=== PATIENT | male | born 1955 | race Caucasian/White ===

== ENCOUNTER 2024-04-19 05:25 | Observation (INO) | payer MEDICARE, SELFPAY ==
[2024-04-18 23:57] VITALS: BP 191/106
[2024-04-19] VITALS (14 sets, daily range): BP systolic 127–162; BP diastolic 80–105; PULSE 75–90; O2SAT 96; BMI 24.4; BMI 24.0
[2024-04-19 00:52] LABS: % Basophils 0.6 % (0-2); % Eosinophils 1.9 % (0-6); % Immature Granulocytes 0.1 % (0-0.5); % Monocytes 9.1 % (1.7-9.3); % Neutrophils 64.3 % (42.2-75.2); Absolute Basophils 0.1 10^3/uL (0-0.2); Absolute Eosinophils 0.2 10^3/uL (0-0.7); Absolute Lymphocytes 1.9 10^3/uL (1.2-3.4); Absolute Monocytes 0.7 10^3/uL (0.1-0.6); Hemoglobin 15.5 g/dL (13.0-18.0); Mean Corpuscular Hgb 30.7 pg (27.0-31.0); Mean Corpuscular Volume 85.1 fL (80.0-94.0); Mean Platelet Volume 9.4 fL (7.4-10.4); Nucleated Red Blood Cells % 0 % (-); Platelet Count 187 10^3/uL (130-400); Red Blood Cell Count 5.05 10^6/uL (4.70-6.10); Red Cell Dist. Width 12.1 % (11.5-14.5); White Blood Cell Count 7.8 10^3/uL (4.8-10.8)
--- NOTE | 2024-04-19 01:02 | ED.GENMED ---
History of Present Illness
General
Chief Complaint: Blood Pressure Problem
Source: patient
Exam Limitations: none
Time Seen by Provider: 04/19/24 00:24
Nursing documentation reviewed up to this point in time: agreed with
History of Present Illness
History of Present Illness:
Pleasant 69-year-old male that presents with dizziness. He states that he drove back from [place] and had several episodes of dizziness while driving. He states that he has a fullness in the back of the head which he is experienced in the past
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 Denies any other neurological issues. Patient does have a history of hypertension, and states that he has been very compliant with his medication. Patient states that he had an embolism from a AAA. He
is not on any blood thinners. He had an aortic dissection repair in the past.
Past History
Past History
ED Past Medical History: HTN and Other (Kidney stones, aortic dissection)
ED Past Surgical History: Urological and Other (Aortic dissection repair, ureteral stent)
Social History
Tobacco: Non-smoker
Alcohol: None
Drug: None
Phy Exam
General Physical Exam
General Presentation: well appearing and no apparent distress
General Skin: warm and dry
General Habitus: normal
General Mental: alert
General Hydration: appears well hydrated
ENT Exam
ENT Exam: EOMI, pharynx normal, neck supple and normocephalic
Eye Exam
Eye Exam: PERRL, cornea clear and conjunctiva normal
Cardiovascular Exam
Cardiovascular Exam: regular rate/rhythm, no edema, no murmur and normal peripheral pulses
Pulmonary Exam
Pulmonary Exam: lungs clear, no respiratory distress, no rales, no crackles, no rhonchi, no stridor, no wheezing and no cough
Gastrointestinal Exam
Gastrointestinal Exam: normal bowel sounds, non tender, soft, no organomegaly, no pulsatile mass and non distended
Neurological Exam
Neurological Exam: alert, oriented x3, no motor deficits and speech normal
Musculoskeletal Exam
Musculoskeletal Exam: full ROM and no edema
Skin Exam
Skin Exam: normal color, warm/dry, no rash and no petechia
Psychiatric Exam
Psychiatric Exam: normal mood/affect
Course
Orders/Labs/Results
Orders:
Orders
04/19/24 00:24
Electrocardiogram (*1) Stat
Reason for Study: Other
Other Reason for Exam: chest pain
Cardiac Monitoring- Treatment ONCE
EKG- Treatment ONCE
04/19/24 00:44
Complete Blood Count/With Diff Urgent
Comprehensive Metabolic Panel Urgent
PTT Urgent
Prothrombin Time Urgent
TSH Urgent
Troponin I Urgent
04/19/24 00:57
CT Head & Neck Angio W/wo IV Urgent
Comment:
Reason For Exam: head pain similar to previous thrombotc cva
04/19/24 00:58
US Abdomen Complete/Upper Urgent
Comment:
Reason For Exam: known AAA
04/19/24 03:32
Aspirin 325 mg PO NOW STA
Clopidogrel Bisulfate [Plavix] 150 mg PO NOW STA
Abnormal Lab Results
04/19/24
00:44
Absolute Monos (auto) 0.7 H 10^3/uL
(0.1-0.6)
Glucose 106 H mg/dl
(70-99)
Alkaline Phosphatase 37 L U/L
(38-126)
04/19/24 00:44
04/19/24 00:44
Vital Signs
Initial and Last Documented VS:
Initial Vital Signs
Temp Pulse Resp BP Pulse Ox
98 F 88 18 191/106 95
04/18/24 23:57 04/18/24 23:57 04/18/24 23:57 04/18/24 23:57 04/18/24 23:57
Last Documented Vital Signs
Temp Pulse Resp BP Pulse Ox
98 F 86 16 147/94 96
04/18/24 23:57 04/19/24 02:35 04/19/24 02:35 04/19/24 02:35 04/19/24 02:35
*Radiology
Radiology exam reviewed: radiology read reviewed
*Pulse Oximetry
Patient hypoxic: no
*Dust Collector Attendant Interpretation
Rate: normal
*Critical Care Note
Total Time (30-74mins, 75-104mins- exclusive of procedures): Not Applicable
Patient Management
Social determinants of health affecting care: Strong social support
Discussion with other providers: Hospitalist and Hand Welt Butter (neurology)
Update Note
Update Note:
CT head without contrast
CTA head and neck with IV contrast
IMPRESSION:
Non-contrast Head:
No acute intracranial abnormality. No acute territorial infarct, hemorrhage, mass effect, or midline shift. Mild microangiopathy.
CTA Neck:
The bilateral vertebral arteries are widely patent. Bilateral common carotid and internal carotid arteries are widely patent without significant stenosis.
CTA Head:
Moderate multifocal narrowing of an anterior M3 branch of the left MCA.
The [place] is otherwise patent without aneurysm, severe stenosis, or occlusion.
I spoke with Tonny Herron, neurology who after review of the CT angiogram recommended patient be admitted to the hospitalist service for further evaluation. Patient is in agreement. He will receive 300 of aspirin and 150 mg of Plavix.
ED Attending Note
-
Portions of this chart may have been created with voice recognition software.� Occasional wrong word or��sound alike� substitutions may have occurred due to the inherent limitations of voice recognition software.
Discharge Plan
Departure
Patient Disposition: Admit
Date of Disposition: 04/19/24
Time of Disposition: 03:55
Admit to: Telemetry
Presentation/result/management discussed w/ accepting MD/DO: Hospitalist
Condition: Good
Discharge Problem:
Dizziness, Hypertension
Prescriptions:
No Action
levofloxacin 500 MG tablet
500 mg PO DAILY Qty: 7 0RF
Referrals:
Carrie Gomez DO [Family Provider] -
Interventions
Interventions:
*Risk Screen - Suicide Last Done: 04/19/24 00:02
*General Assessment Last Done: 04/19/24 00:02
*Neglect/Abuse Screening Last Done: 04/19/24 00:02
ED- Fall Risk Assessment Last Done: 04/19/24 01:19
*ED COVID-19 Vaccine History Last Done: 04/19/24 00:02
ED- Cardiac Assessment Last Done: 04/19/24 01:17
ED- Neurological Assessment Last Done: 04/19/24 01:20
ED- Pulmonary Assessment Last Done: 04/19/24 01:41
Discharge Date and Time
Print Language: LITHUANIAN
[2024-04-19 01:05] LABS: INR 1.14; PT 14.6 Sec (11.4-14.6)
[2024-04-19 01:06] LABS: ALT (SGPT) 28 U/L (0-50); AST (SGOT) 30 U/L (17-59); Albumin 4.5 g/dl (3.5-5.0); Alkaline Phosphatase 37 U/L (38-126); Blood Urea Nitrogen 20 mg/dl (9-20); Calcium 9.7 mg/dl (8.4-10.2); Carbon Dioxide 26 mmol/L (22-30); Chloride 103 mmol/L (98-107); Glucose 106 mg/dl (70-99); Potassium 3.6 mmol/L (3.5-5.1); Sodium 139 mmol/L (135-145); Total Bilirubin 0.7 mg/dl (0.2-1.3); Total Protein 7.1 g/dl (6.3-8.2); eGFR > 60.00
[2024-04-19 01:18] LABS: Troponin I < 0.012 ng/ml
[2024-04-19 01:36] LABS: TSH 2.46 uIU/ml (0.47-4.68)
[2024-04-19] MEDS: PLAVIX 150 MG PO (03:44)
[2024-04-19] MEDS: ASPIRIN 325 MG PO (03:44)
--- NOTE | 2024-04-19 04:20 | HPS.HSE ---
Family Physician
-
Family Physician: Carrie Gomez, DO
Chief Complaint
-
Dizziness
History of Present Illness
Patient is a 69y M with PMH significant for aortic dissection, hypertension and kidney stones who presents to ED complaining of dizziness. Patient states that he has felt his balance was 'somewhat off' for the past few days. He notes that his
symptoms have mostly been mild and brief; however, while driving home from [place] over the past two days - he noted increased symptoms, especially while turning his head from [id number] at intersections, etc. He denies any numbness, tingling,
slurred speech, vision changes, N/V, falls, etc.
Patient notes that he had a mild headache posteriorly this evening on his arrival at home. He checked his BP and noted that it was quite elevated for him: 170/110. He presented to the ED for further evaluation.
On further discussion, patient notes that he has had intermittent, similar symptoms off-and-on for quite some time now.
Symptoms are usually mild and difficult to describe. He denies any overt room-spinning or ataxia.
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 He states that he has had no lasting deficit from that insult.
He is followed regularly by his physicians and notes that he had recent check-up and CT scans of the aorta repair (within the last 9 months) and all was well.
Patient denies any recent medication changes. His most recent change was a decrease in his BP medications a few months ago.
He was evaluated in [place] about 3 weeks ago for kidney stones - passed spontaneously.
Medical History
Past Medical History
Past Medical History: Reports Other
Additional Past Medical History:
Hypertension
Nephrolithiasis
Aortic Dissection
Larissa-Op CVA (9 years ago)
Past Surgical History: Reports Other
Additional Past Surgical History:
Repair of Aortic Arch Dissection (9 years ago)
Social History
Tobacco: Non-smoker
Alcohol: None
Drug: None
Family History
Family History: Not pertinent
Allergies / Home Medications
Allergies reflects when Allergies were last updated in [facility].
Home Medications with original date entered in [facility]
Allergy/Medication List:
Allergies
Allergy/AdvReac Type Severity Reaction Status Date / Time
No Known Allergies Allergy Verified 09/20/18 08:26
Home Medications
amlodipine 5 mg tablet 5 mg PO DAILY 04/19/24
aspirin 81 mg chewable tablet 81 mg PO DAILY 04/19/24
atorvastatin 10 mg tablet 10 mg PO HS 04/19/24
cholecalciferol (vitamin D3) 50 mcg (2,000 unit) tablet 50 mcg PO DAILY 04/19/24
hydrochlorothiazide 12.5 mg tablet 12.5 mg PO DAILY 04/19/24
labetalol 200 mg tablet 200 mg PO BID 04/19/24
potassium citrate 15 mEq (1,620 mg) tablet,extended release 15 meq PO BID 04/19/24
Review of Systems
-
History Source: Patient
A 12 point ROS was completed and negative except as noted: Yes
Constitutional: Denies Fever, Fatigue or Chills
EENT: Denies Sore Throat
Respiratory: Denies Cough or Trouble Breathing
Cardiac: Denies Chest Pain or Palpitations
Abdomen/GI: Denies Abdominal Pain, Nausea, Vomiting or Diarrhea
: Denies Dysuria, Frequency or Flank Pain
Musculoskeletal: Denies Joint Pain or Edema
Neurological: Reports Dizzy and Headache; Denies Weakness or Numbness
Psych: Reports Anxiety; Denies Depression
Physical Exam
Vital Signs
Vital Signs
Temp Pulse Resp BP Pulse Ox
98 F 80 17 158/105 97
04/18/24 23:57 04/19/24 04:00 04/19/24 04:00 04/19/24 04:00 04/19/24 04:00
Physical Exam
General: Other (69y M in no acute distress.)
HEENT: Moist mucous membranes and PERRLA
Respiratory: Clear; No Wheezes, Rales or Rhonchi
Cardiac: S1/S2 and Regular Rhythm; No Murmur
GI: Soft, Non Tender, Non Distended and Normal Bowel Sounds
Musculoskeletal: No Clubbing, No Cyanosis and No Edema
Neuro: AO x 3 and Nonfocal/grossly intact
Laboratory Results
-
04/19/24 00:44
04/19/24 00:44
Laboratory Results
PT 14.6 Sec (11.4-14.6) 04/19/24 00:44
INR 1.14 04/19/24:44
APTT 25.0 Sec (23.4-35.0) 04/19/24 00:44
Total Bilirubin 0.7 mg/dl (0.2-1.3) 04/19/24 00:44
AST 30 U/L (17-59) 04/19/24 00:44
ALT 28 U/L (0-50) 04/19/24 00:44
Alkaline Phosphatase 37 U/L (38-126) L 04/19/24 00:44
Troponin I < 0.012 ng/ml 04/19/24 00:44
Impression/Plan
-
A/P: Patient is a 69y M with PMH significant for aortic dissection and hypertension who presents to ED complaining of dizziness.
Dizziness
Abnormal CTA Head
- Observe overnight for further evaluation and treatment.
- Symptoms as described by patient - especially chronicity / intermittent nature - sound c/w mild BPPV versus recrudescence of prior posterior CVA.
- No other focal symptoms or exam findings at present.
- CT done in the ED is unremarkable. CTA shows moderate focal narrowing of the L M3 segment - which is not anatomically c/w dizziness / ataxia (unless via unilateral weakness).
- Will check MRI / MRA in the AM for further evaluation.
- Continue DAPT for now.
- PT / Vestibular Therapy evaluation.
- Monitor for any new / worsening symptoms overnight.
Benign Hypertension
- BP elevated from his usual baseline.
- ? secondary to acute CVA / TIA.
- Given history of aortic dissection - hesitate to be very permissive of hypertension here.
- Continue usual home medication regimen and adjust as needed.
History of Aortic Dissection
- Patient describes dissection of aortic root / arch about 9 years ago requiring open / on-pump repair.
- Evaluations since that time - most recent about 9 months ago - have been unremarkable.
- Continue anti-impulse therapy and monitor BP / pulse.
- No current / recent symptoms of chest pain, dyspnea, etc.
Nephrolithiasis
- Stable. Recent episode (3 weeks ago in [place]) with stone passing spontaneously into bladder (seen on CT at that time).
- No current flank pain, hematuria, etc.
DVT Prophylaxis: SCDs
Code Status: Full
--- NOTE | 2024-04-19 05:59 | ED.GENMED ---
History of Present Illness
General
Chief Complaint: Blood Pressure Problem
Time Seen by Provider: 04/19/24 00:24
Past History
Past History
ED Past Medical History: HTN and Other (Kidney stones, aortic dissection)
ED Past Surgical History: Urological and Other (Aortic dissection repair, ureteral stent)
Social History
Tobacco: Non-smoker
Alcohol: None
Drug: None
Course
Orders/Labs/Results
Orders:
Orders
04/19/24 00:24
Electrocardiogram (*1) Stat
Reason for Study: Other
Other Reason for Exam: chest pain
Cardiac Monitoring- Treatment ONCE
EKG- Treatment ONCE
04/19/24 00:44
Complete Blood Count/With Diff Urgent
Comprehensive Metabolic Panel Urgent
PTT Urgent
Prothrombin Time Urgent
TSH Urgent
Troponin I Urgent
04/19/24 00:57
CT Head & Neck Angio W/wo IV Urgent
Comment:
Reason For Exam: head pain similar to previous thrombotc cva
04/19/24 00:58
US Abdomen Complete/Upper Urgent
Comment:
Reason For Exam: known AAA
04/19/24 03:32
Aspirin 325 mg PO NOW STA
Clopidogrel Bisulfate [Plavix] 150 mg PO NOW STA
04/19/24 04:16
Admit/Transfer Patient As Directed
Co-Sign Provider:
Level of Care: Observation services
Assign to:: Telemetry
Physician / Group: Cornad
Diagnosis: Dizziness
Reason for Telemetry: CVA/TIA
Date to Stop Telemetry: 04/22/24
Time to Stop Telemetry: 11:00
PRN Pain Medication Management As Directed
May give lesser potent ordered pain med per pt: Yes
preference::
Protocol:: Medication orders for pain may be administered in a
manner that supports deferring to patient preference
when the pt is:
- Requesting an ordered lesser potent pain medication.
Least to most potent pain medications are defined
as: acetaminophen < NSAID < tramadol < opioids
(morphine, oxycodone, hydromorphone).
- Requesting a lesser dose of the same medication IF
ORDERED.
- Requesting a less intrusive route of administration
if both routes are prescribed by the provider (PO <
IV).
04/19/24 04:17
Code Status As Directed
Resuscitation Status: Full Code
04/19/24 05:55
Acetaminophen [Tylenol] 650 mg PO Q4HPRN PRN
HydrALAZINE [Apresoline] 5 mg IV Q6HPRN PRN
04/19/24 05:55
NEUROLOGY CONSULT Routine
Consulting Provider: Tonny Herron
Was physician already notified: Yes
Reason for consult: Dizziness
TSH Reflex To Free T4 Routine
Activity As Directed
Activity Level: Ambulate
With Assistance
EKG with chest pain [ECG as needed] As Directed
ECG as needed for:: Chest Pain
I/O [Intake/ Output] As Directed
Frequency: Per unit guidelines
Neurological Checks As Directed
Frequency: q4h
Orthostatic Vital Signs As Directed
Orthostatic VS Frequency: BID
Pneumatic Compression Sleeves As Directed
Type: Knee high
Vital Signs As Directed
Frequency: Per unit guidelines
Weight As Directed
Frequency: Daily
Oxygen Therapy [O2 Therapy] [RESP] Routine
Titrate/Wean O2 to maintain O2 sat greater than (%): 94
PT Consult [Pt Eval And Treat] Routine
Treatment: Vestibular eval
Activity Level: Ambulate
With Assistance
DX Deep Vein Thrombosis Video Routine
04/19/24 06:00
EKG [Electrocardiogram (*1)] IN AM
Reason for Study: Chest Pain
Regular
At Your Request: Full Participation
Does patient need a safe tray?: No
Basic Metabolic Panel IN AM
Cardiovascular Evaluation IN AM
Complete Blood Count/No Diff IN AM
Glycohemoglobin (HgbA1c) IN AM
[place] With MRA [MA [place] With] IN AM
Comment:
Reason For Exam: CVA / TIA
Recent pill cam endoscopy?: No
MR Brain Without Contrast IN AM
Comment:
Reason For Exam: CVA / TIA
Recent pill cam endoscopy?: No
04/19/24 08:00
Amlodipine [Norvasc] 5 mg PO DAILY
Aspirin Chewable [Low Strength Aspirin] 81 mg PO DAILY
Cholecalciferol (Vitamin D3) [VITAMIN D3 (cholecalciferol)] 50 mcg PO DAILY
Clopidogrel Bisulfate [Plavix] 75 mg PO DAILY
Hydrochlorothiazide [Oretic] 12.5 mg PO DAILY
Labetalol [Trandate] 200 mg PO BID
potassium citrate 15 meq PO BID
04/19/24 22:00
Atorvastatin [Lipitor] 10 mg PO HS
04/22/24 11:00
DC Protocol for Telemetry ONCE
Abnormal Lab Results
04/19/24
00:44
Absolute Monos (auto) 0.7 H 10^3/uL
(0.1-0.6)
Glucose 106 H mg/dl
(70-99)
Alkaline Phosphatase 37 L U/L
(38-126)
04/19/24 00:44
04/19/24 00:44
Vital Signs
Initial and Last Documented VS:
Initial Vital Signs
Temp Pulse Resp BP Pulse Ox
98 F 88 18 191/106 95
04/18/24 23:57 04/18/24 23:57 04/18/24 23:57 04/18/24 23:57 04/18/24 23:57
Last Documented Vital Signs
Temp Pulse Resp BP Pulse Ox
98 F 71 14 139/88 94
04/18/24 23:57 04/19/24 05:00 04/19/24 05:00 04/19/24 05:00 04/19/24 05:00
*EKG
Interpreted by ED Provider?: Yes
EKG Intrepretation Date: 04/19/24
Heart Rate: 76
Rhythm: sinus and PAC's
Interval: normal interval
QRS Pattern: normal QRS
Ischemia: no ischemia
*Educational/Development Assistant Interpretation
Rate: normal
Interpretation: normal
Heart Rate: 68
Rhythm: sinus
ED Attending Note
-
Portions of this chart may have been created with voice recognition software.� Occasional wrong word or��sound alike� substitutions may have occurred due to the inherent limitations of voice recognition software.
Discharge Plan
Departure
Patient Disposition: Admit
Date of Disposition: 04/19/24
Time of Disposition: 03:55
Admit to: Telemetry
Presentation/result/management discussed w/ accepting MD/DO: Hospitalist
Condition: Good
Discharge Problem:
Dizziness, Hypertension
Interventions
Interventions:
*Risk Screen - Suicide Last Done: 04/19/24 00:02
*General Assessment Last Done: 04/19/24 00:02
*Neglect/Abuse Screening Last Done: 04/19/24 00:02
ED- Fall Risk Assessment Last Done: 04/19/24 01:19
*ED COVID-19 Vaccine History Last Done: 04/19/24 00:02
ED- Cardiac Assessment Last Done: 04/19/24 01:17
ED- Neurological Assessment Last Done: 04/19/24 01:20
ED- Pulmonary Assessment Last Done: 04/19/24 01:41
--- NOTE | 2024-04-19 06:25 | PTCARENOTE ---
Patient admitted to unit via stretcher with dx of dizziness. Patient AAOx3. Pleasant and cooperative with care. NIH =0. Denies pain or discomfort. Oriented to unit. Call hicks within reach. Educated on using call hicks for all assists. Patient verbal
states understanding of using call hicks for all assists. Bed alarm applied.
[2024-04-19 08:52] LABS: Hematocrit 46.8 % (39.0-52.0); Hemoglobin 16.5 g/dL (13.0-18.0); Mean Corp Hgb Conc. 35.3 g/dL (33.0-37.0); Mean Corpuscular Hgb 31.6 pg (27.0-31.0); Mean Corpuscular Volume 89.7 fL (80.0-94.0); Mean Platelet Volume 9.2 fL (7.4-10.4); Platelet Count 194 10^3/uL (130-400); Red Blood Cell Count 5.22 10^6/uL (4.70-6.10); White Blood Cell Count 6.1 10^3/uL (4.8-10.8)
[2024-04-19] MEDS: PLAVIX 75 MG PO (08:52)
[2024-04-19] MEDS: NORVASC 5 MG PO (08:52)
[2024-04-19] MEDS: LOW STRENGTH ASPIRIN 81 MG PO (08:52)
[2024-04-19] MEDS: TRANDATE 200 MG PO (08:53)
[2024-04-19] MEDS: VITAMIN D3 (cholecalciferol) 50 MCG PO (08:53)
[2024-04-19] MEDS: ORETIC 12.5 MG PO (08:57)
[2024-04-19 09:23] LABS: Blood Urea Nitrogen 17 mg/dl (9-20); Calcium 9.7 mg/dl (8.4-10.2); Carbon Dioxide 27 mmol/L (22-30); Chloride 101 mmol/L (98-107); Estimated Creatinine Clearance 87 ml/min; Glucose 93 mg/dl (70-99); HDL Cholesterol 58 mg/dl; LDL Cholesterol, Calculated 95 mg/dl; Potassium 4.1 mmol/L (3.5-5.1); Sodium 142 mmol/L (135-145); Total Cholesterol 173 mg/dl (50-199); Triglyceride 103 mg/dl (10-149); Very Low Density Lipoprotein 20 mg/dl (0-30); eGFR > 60.00
--- NOTE | 2024-04-19 09:36 | CON.NEURO4 ---
Documented by User: Neha Montoya NP 04/19/24 11:43
Consultation - Neurology 4
-
CONSULTING PHYSICIAN: Tonny Herron MD
REFERRING PHYSICIAN: Hospitalists/Dr. Martines
DICTATED BY: RISHI Thomas
DATE/TIME OF REQUEST: 04/19/24
DATE/TIME OF CONSULTATION: 04/19/24
Reason for Consultation: Dizziness
History of Present Illness:
This is a 69-year-old right-handed male who has presented to the hospital with report of dizziness. Patient reports that in August 2014 he had an aortic arch dissection s/p repair that was complicated by a clot of some sort and resulted in a small
ischemic right parietal lobe stroke. Following that event he reports having a visual disturbance which he describes as a central loss of vision that improved/resolved after about one week and balance issues. He does note that occasionally he will
see a transient 'tic tac toe' pattern in his vision still. He has been taking aspirin 81mg daily since 2014 and denies missing any doses. He also notes that some time following his aortic dissection, but seemingly separate from his stroke symptoms,
he developed an intermittent 'off balance' sensation that is rare and typically only lasts for several minutes.
Four days ago on 04/15/24 he notes that he developed a similar mild 'off balance' or 'disequilibrium' sensation but this time it has not resolved. He reports that it is constant, but more prominent when he is ambulating or turning his head side to
side. While driving home from [place] over the past two days he reports his symptoms worsened. On arrival home in [place] he checked his blood pressure and notes that it was elevated around 170/110. He notes that his blood pressure is usually less than
120/80 so he decided to come to the ER for evaluation. CTA head/neck was obtained and demonstrates a chronic right parietal lobe ischemic infarct but not acute findings or LVO. Per admitting hospitalist note it says that the CTA is suggestive of L
M3 narrowing, this provider does not see that mentioned in the final radiology report. Patient is not a candidate for TNK/IAT due to outside of the time window/no LVO. He notes that he has a dull posterior head/neck ache which is unusual for him. He
denies any vision changes, speech/swallow difficulty, numbness, weakness, nausea, chest pain, palpitations, and shortness of breath.
Past Medical History: Aortic arch dissection s/p repair 2015 complicated by intraop blood clot resulting in R parietal ischemic stroke, HTN, HLD, nephrolithiasis, renal calculi
Surgical History: AAA repair, lithotripsy
Family History: Reviewed and noncontributory.
Social History: Denies tobacco, alcohol, and illicit drug use.
Allergies: No known allergies.
Home Medications: See below.
Review of Symptoms:
Patient denies any fever, chest pain, shortness of breath, GI or symptoms.
�Per the HPI.�All systems are reviewed negative except above.
Physical Exam:
The patient is afebrile, abdomen is nondistended, breathing is unlabored, skin is warm and dry, no edema.
NIH Stroke Scale:
I performed the NIH stroke scale on the patient on 04/19/24 at 1000. The patient scored 0 points on the NIH stroke scale assessment, which were assigned as follows: See below.
Neurologic Examination:
The patient is awake, alert and oriented x 3. He is able to follow commands and answer questions appropriately. There is no aphasia or dysarthria. On cranial nerve assessment, pupils are 3 mm bilateral, round and reactive to light and
accommodation. Visual hooper are full. Extraocular movements are intact. Facial sensations are intact and bilaterally symmetrical, there is no facial asymmetry. Hearing is intact bilaterally to normal conversation volume. Tongue palate and uvula are
midline. Sternocleidomastoid strengths are full bilaterally. Motor strengths are 5/5 bilateral upper and lower extremities on medical research [place] scale. There is no drift or involuntary movement noted. Deep tendon reflexes are 2+ bilateral
upper and lower extremities and Babinski is absent bilaterally. Sensation of vibration is absent in bilateral toes. There was no extinction noted on double simultaneous stimulation. Coordination is intact by finger to nose bilaterally. Romberg is
negative.
Lab Results: See below.
Neuro Imaging:
1. CTA head/neck 04/19/24: No acute intracranial abnormalities. Small chronic infarct within the posterior right parietal lobe. No large vessel occlusions identified. No aneurysms or dissections. Mild calcified plaque within the right carotid bulb.
No significant stenosis.
Differentials for the patient's presentation include:
1. Disequilibrium; unclear etiology, possibly hypertensive urgency producing recrudescence of old stroke symptoms, orthostatic hypotension, peripheral vertigo syndrome, vs new ischemic posterior infarct.
2. Chronic right parietal ischemic stroke.
3. Duration of symptoms too long to be a TIA.
4. Peripheral neuropathy likely given absent vibration sensation in toes.
Patient has the following risk factors for their symptoms: Hx posterior stroke, HTN, HLD, age
IV Tenecteplase/IAT candidacy: Patient is not a candidate for TNK/IAT due to outside of the time window/no LVO.
Recommendations:
-Continue DAPT with aspirin 81mg and Plavix 75mg daily for 21 days. If MRI brain is negative, per Dr. Herron, discontinue Plavix and continue on aspirin 81mg daily only.
-MRI brain noncontrast, MRA COW pending for follow-up L M3 stenosis per Hospitalist service.
-Goal normotension.
-Check orthostatic vital signs.
-If MRI demonstrates an acute infarct, obtain TTE.
-Physical therapy evaluation.
-LDL goal <70 with history of stroke. LDL is 95. Increase home atorvastatin from 10mg to 40mg daily.
-Goal normoglycemia, hbA1c is 5.2.
-NIHSS and neurological checks per unit guidelines.
-Provide patient with a stroke education packet.
-Checking blood work for reversible causes of peripheral neuropathy.
-DVT prophylaxis.
-Will follow pending results. Patient should follow-up with Neurology as an outpatient, may see the INFORMATION ENGINEER or one of the physicians.
Discussed patient care with: Dr. Herron, the patient
Vital Signs and Labs
-
Vital Signs and Labs:
Vital Signs
Temp Pulse Resp BP Pulse Ox
97.6 F 78 18 134/87 99
04/19/24 07:45 04/19/24 08:52 04/19/24 07:45 04/19/24 08:52 04/19/24 07:45
Lab Results
04/19/24 08:36
04/19/24 08:36
PT 14.6 Sec (11.4-14.6) 04/19/24 00:44
INR 1.14 04/19/24 00:44
APTT 25.0 Sec (23.4-35.0) 04/19/24 00:44
Sodium 142 mmol/L (135-145) 04/19/24 08:36
Potassium 4.1 mmol/L (3.5-5.1) 04/19/24 08:36
BUN 17 mg/dl (9-20) 04/19/24 08:36
Glucose 93 mg/dl (70-99) 04/19/24 08:36
Calcium 9.7 mg/dl (8.4-10.2) 04/19/24 08:36
LDL Cholesterol, Calc 95 mg/dl 04/19/24 08:36
Medications
-
Active Medications
Generic Name Dose Route Start Last Admin
Trade Name Freq PRN Reason Stop Dose Admin
Acetaminophen 650 mg 04/19/24 05:55
Acetaminophen 325 Mg Tablet PO 05/17/24 05:54
Q4HPRN PRN
Mild Pain / Temp > 101
Amlodipine Besylate 5 mg 04/19/24 08:00 04/19/24 08:52
Amlodipine 5 Mg Tablet PO 05/17/24 07:59 5 mg
DAILY THAI Administration
Aspirin 81 mg 04/19/24 08:00 04/19/24 08:52
Aspirin 81 Mg Chewable Tablet PO 05/17/24 07:59 81 mg
DAILY THAI Administration
Atorvastatin Calcium 40 mg 04/19/24 22:00
Atorvastatin (Lipitor) 40 Mg Tablet PO 05/17/24 21:59
HS THAI
Cholecalciferol 50 mcg 04/19/24 08:00 04/19/24 08:53
Cholecalciferol (Vitamin D3) 50 Mcg Tablet (2,000 Units) PO 05/17/24 07:59 50 mcg
DAILY THAI Administration
Clopidogrel Bisulfate 75 mg 04/19/24 08:00 04/19/24 08:52
Clopidogrel 75 Mg Tablet PO 05/17/24 07:59 75 mg
DAILY THIA Administration
Hydralazine HCl 5 mg 04/19/24 05:55
Hydralazine 20 Mg/Ml Vial IV 05/17/24 05:54
Q6HPRN PRN
SBP > 180 or DBP > 110
Hydrochlorothiazide 12.5 mg 04/19/24 08:00 04/19/24 08:57
Hydrochlorothiazide 12.5 Mg Tablet PO 05/17/24 07:59 12.5 mg
DAILY THAI Administration
Labetalol HCl 200 mg 04/19/24 08:00 04/19/24 08:53
Labetalol 200 Mg Tablet PO 05/17/24 07:59 200 mg
BID THAI Administration
Potassium Citrate 15 15 meq 04/19/24 08:00
Meq Tablet Extended PO 05/17/24 07:59
Release BID THAI
Sodium Chloride 0 flush 04/19/24 07:00
Sodium Chloride 0.9% (Flush) Syringe IV 05/17/24 06:59
PER PROTOCOL THAI
Home Medications
�Medication �Instructions �Recorded
amlodipine 5 mg tablet 5 mg PO DAILY 04/19/24
aspirin 81 mg chewable tablet 81 mg PO DAILY 04/19/24
atorvastatin 10 mg tablet 10 mg PO HS 04/19/24
cholecalciferol (vitamin D3) 50 50 mcg PO DAILY 04/19/24
mcg (2,000 unit) tablet
hydrochlorothiazide 12.5 mg tablet 12.5 mg PO DAILY 04/19/24
labetalol 200 mg tablet 200 mg PO BID 04/19/24
potassium citrate 15 mEq (1,620 15 meq PO BID 04/19/24
mg) tablet,extended release
NIH Stroke Score
Subsequent NIH Scale
Date of Subsequent NIH Scale: 04/19/24
Time of Subsequent NIH Scale: 10:00
NIH Stroke Score
Level of Consciousness: 0 - Alert
LOC Questions: 0-Answers both correctly
LOC Commands: 0-Performs both correctly
Best Horizontal Gaze: 0-Normal
Visual Hooper: 0=Normal, no visual loss
Facial Palsy: 0=Normal, symmetrical
Motor - Right Arm: 0=No drift 10 seconds
Motor - Left Arm: 0=No drift 10 seconds
Motor - Right Le-No drift 5 seconds
Motor - Left Le-No drift 5 seconds
Limb Ataxia: 0-Absent
Sensation: 0-Normal
Best Language: 0-No aphasia
Dysarthria: 0-Normal
Extinction and Inattention: 0-No abnormality
Total Score:: 0
Modified Ryan (mRS) Score
Modified Ryan Scale (mRS): No significant disability. Able to carry out usual activities.
Score: 1
Alteplase Contraindication
Inclusion and Exclusion criteria reviewed: Yes
Reasons for NON-Tx with Thrombolytics ABSOLUTE Exclusions: Greater than 4.5 hrs from onset of sxs
IAT Contraindications: Imaging doesn't show large vessel occlusion as cause of stroke

Documented by User: Tonny Herron MD 04/19/24 21:24
Consultation - Neurology 4
-
CONSULTING PHYSICIAN: Tonny Herron MD
REFERRING PHYSICIAN: Hospitalists/Dr. Martines
DICTATED BY: RISHI Thomas
DATE/TIME OF REQUEST: 04/19/24
DATE/TIME OF CONSULTATION: 04/19/24
Reason for Consultation: Dizziness
History of Present Illness:
This is a 69-year-old right-handed male who has presented to the hospital with report of dizziness. Patient reports that in August 2014 he had an aortic arch dissection s/p repair that was complicated by a clot of some sort and resulted in a small
ischemic right parietal lobe stroke. Following that event he reports having a visual disturbance which he describes as a central loss of vision that improved/resolved after about one week and balance issues. He does note that occasionally he will
see a transient 'tic tac toe' pattern in his vision still. He has been taking aspirin 81mg daily since 2014 and denies missing any doses. He also notes that some time following his aortic dissection, but seemingly separate from his stroke symptoms,
he developed an intermittent 'off balance' sensation that is rare and typically only lasts for several minutes.
Four days ago on 04/15/24 he notes that he developed a similar mild 'off balance' or 'disequilibrium' sensation but this time it has not resolved. He reports that it is constant, but more prominent when he is ambulating or turning his head side to
side. While driving home from [place] over the past two days he reports his symptoms worsened. On arrival home in [place] he checked his blood pressure and notes that it was elevated around 170/110. He notes that his blood pressure is usually less than
120/80 so he decided to come to the ER for evaluation. CTA head/neck was obtained and demonstrates a chronic right parietal lobe ischemic infarct but not acute findings or LVO. Per admitting hospitalist note it says that the CTA is suggestive of L
M3 narrowing, this provider does not see that mentioned in the final radiology report. Patient is not a candidate for TNK/IAT due to outside of the time window/no LVO. He notes that he has a dull posterior head/neck ache which is unusual for him. He
denies any vision changes, speech/swallow difficulty, numbness, weakness, nausea, chest pain, palpitations, and shortness of breath.
Past Medical History: Aortic arch dissection s/p repair 2015 complicated by intraop blood clot resulting in R parietal ischemic stroke, HTN, HLD, nephrolithiasis, renal calculi
Surgical History: AAA repair, lithotripsy
Family History: Reviewed and noncontributory.
Social History: Denies tobacco, alcohol, and illicit drug use.
Allergies: No known allergies.
Home Medications: See below.
Review of Symptoms:
Patient denies any fever, chest pain, shortness of breath, GI or symptoms.
�Per the HPI.�All systems are reviewed negative except above.
Physical Exam:
The patient is afebrile, abdomen is nondistended, breathing is unlabored, skin is warm and dry, no edema.
NIH Stroke Scale:
I performed the NIH stroke scale on the patient on 04/19/24 at 1000. The patient scored 0 points on the NIH stroke scale assessment, which were assigned as follows: See below.
Neurologic Examination:
The patient is awake, alert and oriented x 3. He is able to follow commands and answer questions appropriately. There is no aphasia or dysarthria. On cranial nerve assessment, pupils are 3 mm bilateral, round and reactive to light and
accommodation. Visual hooper are full. Extraocular movements are intact. Facial sensations are intact and bilaterally symmetrical, there is no facial asymmetry. Hearing is intact bilaterally to normal conversation volume. Tongue palate and uvula are
midline. Sternocleidomastoid strengths are full bilaterally. Motor strengths are 5/5 bilateral upper and lower extremities on medical research [place] scale. There is no drift or involuntary movement noted. Deep tendon reflexes are 2+ bilateral
upper and lower extremities and Babinski is absent bilaterally. Sensation of vibration is absent in bilateral toes. There was no extinction noted on double simultaneous stimulation. Coordination is intact by finger to nose bilaterally. Romberg is
negative.
Lab Results: See below.
Neuro Imaging:
1. CTA head/neck 04/19/24: No acute intracranial abnormalities. Small chronic infarct within the posterior right parietal lobe. No large vessel occlusions identified. No aneurysms or dissections. Mild calcified plaque within the right carotid bulb.
No significant stenosis.
Differentials for the patient's presentation include:
1. Disequilibrium; unclear etiology, possibly hypertensive urgency producing recrudescence of old stroke symptoms, orthostatic hypotension, peripheral vertigo syndrome, vs new ischemic posterior infarct.
2. Chronic right parietal ischemic stroke.
3. Duration of symptoms too long to be a TIA.
4. Peripheral neuropathy likely given absent vibration sensation in toes.
Patient has the following risk factors for their symptoms: Hx posterior stroke, HTN, HLD, age
IV Tenecteplase/IAT candidacy: Patient is not a candidate for TNK/IAT due to outside of the time window/no LVO.
Recommendations:
-Continue DAPT with aspirin 81mg and Plavix 75mg daily for 21 days. If MRI brain is negative, per Dr. Herron, discontinue Plavix and continue on aspirin 81mg daily only.
-MRI brain noncontrast, MRA COW pending for follow-up L M3 stenosis per Hospitalist service.
-Goal normotension.
-Check orthostatic vital signs.
-If MRI demonstrates an acute infarct, obtain TTE.
-Physical therapy evaluation.
-LDL goal <70 with history of stroke. LDL is 95. Increase home atorvastatin from 10mg to 40mg daily.
-Goal normoglycemia, hbA1c is 5.2.
-NIHSS and neurological checks per unit guidelines.
-Provide patient with a stroke education packet.
-Checking blood work for reversible causes of peripheral neuropathy.
-DVT prophylaxis.
-Will follow pending results. Patient should follow-up with Neurology as an outpatient, may see the INFORMATION ENGINEER or one of the physicians.
Discussed patient care with: Dr. Herron, the patient
Neurology Attending Note:
CC: Dizziness
HPI: 69-year-old right-handed male who was admitted to the hospital with report of dizziness. He gives a h/o Aortic arch dissection s/p repair( 2014) complicated by Right parietal ischemic stroke, HTN, HLD, nephrolithiasis, renal calculi.Following
that he reports a visual disturbance which he describes as a loss of central vision and unsteady. This improved/resolved after a week. But the balance recurs intermittently. He does note that occasionally he will see a transient 'tic tac toe'
pattern in his vision.
He has been taking aspirin 81mg daily since 2014 and denies missing any doses. He also notes that some time following his aortic dissection, he is'off balance' intermittently lasting for few minutes.
Four days ago on 04/15/24 he notes that he developed a similar mild 'off balance' or 'disequilibrium' sensation but this time it did not resolved. He reports that it is constant, but more prominent when he is ambulating or turning his head side to
side. While driving home from [place] over the past two days he reports his symptoms worsened along with BUCK occipitally.
On arrival to his home in [place] he checked his blood pressure and notes that it was elevated around 170/110. He notes that his blood pressure is usually less than 120/80 so he decided to come to the ER for evaluation. CTA head/neck was obtained and
demonstrates a chronic right parietal lobe ischemic infarct
After admission his symptoms have resolved. PAt was given aspirin 300mg and Plavix 150 mg
O/E: A,A, Ox3. Speech fluent with intact comprehension. CN II-XII WNL. Motor exam Normal tone and strength. reflexes + Rombergs Negative. Gait WNL
MRI/MRA Brain revealed chronic right parietal Infarction with multiple hemosiderin deposits suggestive of amyloid angiopathy
A/P: Vertigo secondary to HTN
Chronic Right parietal infarction
PLAN: Aspirin 81
Strict BP control
Lipitor 40>>20mg
Meclizine 25 mg prn
Pat may be discharged
NIH Stroke Score
NIH Stroke Score
Total Score:: 0
Modified Ryan (mRS) Score
Score: 1
[2024-04-19 09:51] LABS: TSH Reflex To Free T4 1.68 uIU/ml (0.47-4.68)
[2024-04-19 10:06] LABS: Glycohemoglobin (HgbA1c) 5.2 % (4.0-5.6)
[2024-04-19 13:42] LABS: Ferritin 54.8 ng/ml (17.9-464.0)
[2024-04-19 14:02] LABS: Folate 10.7 ng/ml (2.76-20); Vitamin B12 215 pg/ml (239-931)
--- NOTE | 2024-04-19 14:04 | W.PN.HOSP.TC ---
Today's Communication/Plan
-
Vestibular therapy at discharge
Meclizine
Discharge
Assessment / Plan
Assessment / Plan
#Vertigo
-Suspected BPPV versus vestibular neuritis
-MRI here negative; no focal deficits on exam
-History suspicious for BPPV
-Will provide referral for VT at discharge
-Prescription sent for meclizine as needed
Anticipated Discharge: Today
Subjective/Interval History
-
Date of Service: April 19, 2024
Seen and examined bedside. No events overnight. AFVSS has been.
MRI this morning negative. High suspicion for inner ear etiology such as BPPV versus vestibular neuritis
States his symptoms are mild at this time. Denies any other acute
Objective Data
-
Labs:
Laboratory Results
04/19/24
08:36
WBC 6.1
Hgb 16.5
Hct 46.8
Plt Count 194
Sodium 142
Potassium 4.1
Chloride 101
Carbon Dioxide 27
BUN 17
Creatinine 0.8
Glucose 93
Calcium 9.7
Vital Signs:
Vital Signs
Temp Pulse Resp BP Pulse Ox
97.6 F 78 18 134/87 99
04/19/24 07:45 04/19/24 08:52 04/19/24 07:45 04/19/24 08:52 04/19/24 08:25
Review of Systems
-
History Source: Patient
All other systems: Reviewed and negative
Physical Exam
-
General: Well Nourished, No Apparent Distress and Comfortable
HEENT: Normocephalic, Atraumatic and Moist Mucous Membranes
Respiratory: Clear to Auscultation and Non Labored Respirations
Cardiac: Regular Rhythm and S1/S2; Negative Murmur, Rub or Gallop
GI: Soft, Nontender, Nondistended and Normal Bowel Sounds
Musculoskeletal: No Clubbing, No Cyanosis and No Edema
Skin: Warm and Dry; Negative Rash
Neuro: AO x 3, Nonfocal/Grossly Intact, Central Nerve's Intact and Other (PERRL, EOMI, no nystagmus)
Psych: Calm
Data Reviewed
-
Labs: Labs Reviewed by me and Discussed with Patient
--- NOTE | 2024-04-19 14:26 | W.DCSUMMARY ---
Discharge Summary
Discharge Data
Date of Admission: 04/19/24
Date of Discharge: 04/19/24
-
Pending Results: No
Hospital Course
69-year-old male with history of thoracic aortic dissection s/p surgical repair, HTN, nephrolithiasis, H/O perioperative CVA that presented to the hospital with dizziness. CT head without signs of acute infarction or ICH, no midline shift or mass
effect. CTA did show high-grade stenosis to M3 branch of the left middle cerebral artery. This finding did not correlate with his symptomatology however. MRI brain was performed which was also negative for any acute findings, did redemonstrate
his previous infarct.
Suspicion high for inner ear etiology such as BPPV for his vestibular neuritis. Mentions that symptom onset occurred after a head motion where he turned head to the left. CTA without any signs of dissection or vertebral artery disease. Was
evaluated by PT that performed vestibular therapy. Prescription provided for ongoing vestibular therapy after discharge from the hospital. Ordered 5-day course of meclizine 25 mg twice daily. Due to the high-grade M3 stenosis seen on CTA his
statin therapy was escalated to high intensity statin at discharge.
Patient should have follow-up with his family doctor within 7 to 10 days of discharge from the hospital.
Discharge Plan
-
Patient Disposition: Home (Routine Discharge)
Discharge Diagnosis/Procedures: Vertigo
Condition: Good
Diet: No restrictions
Activity: As tolerated
Driving Restrictions: As prior to admission
Bathing Restrictions: None
Blood Work: None
Others Tests: None
Other Services: PT
Activity Restrictions/Additional Instructions:
Schedule follow-up appointment with your family doctor within 7 days of discharge from the hospital
Instructions: Vestibular Exercises, Vertigo ED
Referrals:
Carrie Gomez DO [Family Provider] -
Additional Discharge Medication Instructions: Increased atorvastatin to 40 mg nightly
Take meclizine 25 mg as needed up to two times daily for dizziness
Prescriptions:
New
atorvastatin 40 mg Tablet
40 mg PO HS 30 Days Qty: 30 0RF
meclizine 25 mg tablet
25 mg PO BID PRN (Reason: dizziness) 5 Days Qty: 10 0RF
Continued
labetalol 200 mg Tablet
200 mg PO BID
amlodipine 5 mg Tablet
5 mg PO DAILY
aspirin 81 mg Tablet,Chewable
81 mg PO DAILY
hydrochlorothiazide 12.5 mg Tablet
12.5 mg PO DAILY
cholecalciferol (vitamin D3) 50 mcg (2,000 unit) Tablet
50 mcg PO DAILY
potassium citrate 15 mEq Tablet Extended Release
15 meq PO BID
Discontinued
atorvastatin 10 mg Tablet
10 mg PO HS
Discharge Orders:
Discharge Patient (As Directed); Ordered 04/19/24
Ordered By: Rick Devries
Discharge Date and Time
Print Language: MOZAMB[place]
--- NOTE | 2024-04-19 14:49 | CM ---
CM reviewed chart, patient for discharge today. Patient seen bedside. Patient resides alone, one story home, no steps to enter. Patient is independent with ADLs/IADLs. PT recommending vestibular therapy, script provided. Patient confirms PCP Carrie
Jason, [facility].
GUERIN reviewed, refused to sign, placed in chart. CM will continue to follow for all discharge planning needs.
Plan; home with script for vestibular therapy.
== END 2024-04-19 15:08 | disposition home or self-care (01) ==
LOC: 4 WEST ACU 05:25
PROVIDERS: ADMITTING PHYSICIAN Hospitalist; ATTENDING PHYSICIAN Internal Medicine; CONSULT PHYSICIAN Psychiatry & Neurology Neurology; EMERGENCY PHYSICIAN Student in an Organized Health Care Education/Training Program; FAMILY PHYSICIAN Family Medicine
DX: R42 Dizziness and giddiness (principal); I10 Essential (primary) hypertension; I71.40 Abdominal aortic aneurysm, without rupture, unspecified; R07.9 Chest pain, unspecified; E78.5 Hyperlipidemia, unspecified; I67.82 Cerebral ischemia; I69.398 Other sequelae of cerebral infarction; G93.89 Other specified disorders of brain; I49.1 Atrial premature depolarization; G31.9 Degenerative disease of nervous system, unspecified; I45.10 Unspecified right bundle-branch block; M48.02 Spinal stenosis, cervical region; M50.322 Other cervical disc degeneration at C5-C6 level; M50.323 Other cervical disc degeneration at C6-C7 level; Z60.2 Problems related to living alone; Z79.02 Long term (current) use of antithrombotics/antiplatelets; Z79.82 Long term (current) use of aspirin; Z86.79 Personal history of other diseases of the circulatory system; Z87.442 Personal history of urinary calculi
CPT/HCPCS: 70496; 70498; 70544; 70551; 76700; 80048; 80053; 80061; 82607; 82728; 82746; 83036; 84443; 84484; 85025; 85027; 85610; 85730; 93005; 97112; 97163; 99285; Q9967

== ENCOUNTER 2024-05-24 06:45 | Outpatient (RCR) | payer MEDICARE, SELFPAY | END 2024-05-24 23:59 | disposition home or self-care (01) | LOC: RPT 06:45 | PROVIDERS: ATTENDING PHYSICIAN Internal Medicine; FAMILY PHYSICIAN Family Medicine | DX: R42 Dizziness and giddiness (principal); Z73.6 Limitation of activities due to disability | CPT/HCPCS: 97112; 97162 ==

== ENCOUNTER 2024-06-13 16:30 | Outpatient (RCR) | payer MEDICARE, SELFPAY | END 2024-06-13 23:59 | disposition home or self-care (01) | LOC: RPT 16:30 | PROVIDERS: ATTENDING PHYSICIAN Internal Medicine; FAMILY PHYSICIAN Family Medicine | DX: R42 Dizziness and giddiness (principal); Z73.6 Limitation of activities due to disability | CPT/HCPCS: 97112 ==